=== PATIENT | male | born 1965 | race Caucasian/White ===

== ENCOUNTER 2020-11-09 15:18 | Emergency (ER) | payer OTHER ==
[2020-11-09] MEDS ORDERED: PEPCID40 MG PO (16:33)
[2020-11-09] MEDS ORDERED: BENADRYL ALLERG25 MG PO (16:33)
[2020-11-09] MEDS ORDERED: PREDNISONE50 MG PO (16:33)
== END 2020-11-09 16:44 | disposition home or self-care (01) ==
LOC: ER1 15:18
DX: T78.40XA Allergy, unspecified, initial encounter (principal); I10 Essential (primary) hypertension; F17.210 Nicotine dependence, cigarettes, uncomplicated
CPT/HCPCS: 96372; 99283; J1100

== ENCOUNTER → 2021-01-11 | Outpatient (CLI) | payer OTHER ==
[~2021-01-11] MED LIST: ASPIRIN EC325 MG PO; BENADRYL ALLERG25 MG PO; FISH OIL 1,0001 EAC1 PO; FOLATE PO; HYDROCODON-ACE1 EAC2 PO; MAGNESIUM250 M1 PO; MULTIVITAMIN PO; PEPCID40 MG PO; POTASSIUM99 M1 PO; PREDNISONE50 MG PO; VITAMIN D250 MCG PO
== END ==
LOC: OPSV2 08:00
DX: Z01.810 Encounter for preprocedural cardiovascular examination (principal); G56.02 Carpal tunnel syndrome, left upper limb; I10 Essential (primary) hypertension
CPT/HCPCS: 93005

== ENCOUNTER → 2021-01-17 | Day surgery (SDC) | payer OTHER | END | disposition home or self-care (01) | LOC: OR 06:11 | DX: G56.03 Carpal tunnel syndrome, bilateral upper limbs (principal); M19.012 Primary osteoarthritis, left shoulder; I10 Essential (primary) hypertension; E78.5 Hyperlipidemia, unspecified; F40.240 Claustrophobia; M75.102 Unspecified rotator cuff tear or rupture of left shoulder, not specified as traumatic; Z20.822 Contact with and (suspected) exposure to COVID-19; Z87.891 Personal history of nicotine dependence; Z91.018 Allergy to other foods | CPT/HCPCS: J1100; J1885; J2001; J2250; J2405; J2704; J3010; J7120 ==

== ENCOUNTER 2021-08-10 15:58 | Emergency (ER) | payer OTHER ==
[2021-08-10] MEDS ORDERED: MEDROL DOSEPAK 24 MG PO (17:09)
== END 2021-08-10 17:36 | disposition home or self-care (01) ==
LOC: ER1 15:58
DX: G56.22 Lesion of ulnar nerve, left upper limb (principal); F17.210 Nicotine dependence, cigarettes, uncomplicated
CPT/HCPCS: 99282

== ENCOUNTER 2021-09-09 17:43 | Emergency (ER) | payer OTHER ==
[~2021-09-09 17:43] MED LIST changes: +MEDROL DOSEPAK 24 MG PO
[2021-09-10] MEDS ORDERED: ROXICODONE5 MG PO (00:33)
== END 2021-09-10 01:10 | disposition home or self-care (01) ==
LOC: ER1 17:43
DX: G89.18 Other acute postprocedural pain (principal); M25.522 Pain in left elbow; I11.9 Hypertensive heart disease without heart failure; F17.200 Nicotine dependence, unspecified, uncomplicated
CPT/HCPCS: 96372; 99283; J2270